=== PATIENT | female | born 1970 | race Caucasian/White ===

== ENCOUNTER 2024-07-29 16:36 | Emergency (ER) | payer OTHER ==
[~2024-07-29] VITALS: Ht 157.5 cm; Wt 73.0 kg
[2024-07-29 16:41] VITALS: O2SAT 98
[2024-07-29] MEDS ORDERED: NAPR-1176 MT (22:07)
[2024-07-29] MEDS ORDERED: LIDO700A15 TP (22:07)
[2024-07-29] MEDS: KETOROLAC 15MG/ML VIAL IM ONE (22:08)
[2024-07-29 22:21] VITALS: BP 121/47; PULSE 98; RESP 18; TEMP 37.22520; O2SAT 98
== END 2024-07-29 22:48 | disposition home or self-care (01) ==
LOC: ER 16:36
DX: S20.219A Contusion of unspecified front wall of thorax, initial encounter (principal); R07.89 Other chest pain; Z79.1 Long term (current) use of non-steroidal anti-inflammatories (NSAID); V89.2XXA Person injured in unspecified motor-vehicle accident, traffic, initial encounter; Y92.410 Unspecified street and highway as the place of occurrence of the external cause; Y92.89 Other specified places as the place of occurrence of the external cause; Y99.8 Other external cause status
CPT/HCPCS: 71045; 96372; 99283; J1885; Z7610 ×3